=== PATIENT | male | born 1975 | race Caucasian/White ===

== ENCOUNTER 2021-07-27 05:58 | Emergency (ER) | payer OTHER ==
[~2021-07-27] VITALS: Ht 175.3 cm; Wt 81.8 kg
[~2021-07-27 05:58] MED LIST: CEPHALEXIN500 M1 PO; NO HOME MEDICATIONS
[2021-07-27 06:14] VITALS: TEMP 98.1
[2021-07-27 07:22] VITALS: BP 115/75; PULSE 80
== END 2021-07-27 07:25 | disposition home or self-care (01) ==
LOC: COL.ER 05:58
DX: S09.90XA Unspecified injury of head, initial encounter (principal); S01.01XA Laceration without foreign body of scalp, initial encounter; S50.812A Abrasion of left forearm, initial encounter; W20.8XXA Other cause of strike by thrown, projected or falling object, initial encounter